=== PATIENT | female | born 1990 | race African-American/Black ===

== ENCOUNTER 2022-09-10 20:28 | Inpatient (IN) ==
[2022-09-10 20:58] LABS: Bacteria,Urine Occasional /HPF (Few); RBC,Urine 4 /HPF (0-4); Squamous Epithelial Cell,Urine Many /HPF (0-10)
[2022-09-10 21:00] LABS: Urine Appearance Slightly Cloudy (Clear); Urine Color Yellow (Yellow); Urine pH 6.5 (4.5-8.0)
[2022-09-10 21:01] LABS: Bilirubin,Urine Negative (Negative); Blood, Urine Trace mg/dL (Negative); Glucose,Urine (UA) Negative (Negative); Ketones,Urine Negative (Negative); Nitrite,Urine Negative (Negative); Protein,Urine Negative (Negative); Urine Urobilinogen 0.2 eU/dL (<2.0)
[2022-09-10 21:05] LABS: Barbiturates Screen,Urine Negative (Negative); Benzodiazepines Screen,Urine Negative (Negative); Cannabinoid Screen,Urine Negative (Negative); Opiate Screen,Urine Negative (Negative); Phencyclidine Screen,Urine Negative (Negative)
[2022-09-10] MEDS ORDERED: SODIUM PHOSPHATE ENEMA 133 ML BOTTLE RECTAL ONE (21:30)
[2022-09-10] MEDS ORDERED: LACTATED RINGERS 1,000 ML IV ONE (21:30)
[2022-09-10] MEDS: LACTATED RINGERS 1,000 ML IV SCH (23:14)
[2022-09-11] MEDS ORDERED: MEPERIDINE 50 MG/1 ML VIAL IV PRN (02:14)
[2022-09-11] MEDS ORDERED: ONDANSETRON 4 MG/2 ML VIAL IV PRN (02:14)
[2022-09-11] MEDS ORDERED: OXYTOCIN/LR 20 UNIT/1,000 ML BAG IV ONE (07:40)
[2022-09-11] MEDS ORDERED: METHYLERGONOVINE 0.2 MG/1 ML AMP IM PRN (07:40)
[2022-09-11] MEDS ORDERED: CARBOPROST TROMETHAMINE 250 MCG/ML AMP IM PRN (07:40)
[2022-09-11] MEDS ORDERED: miSOPROStoL 200 MCG TABLET RECTAL PRN (07:40)
[2022-09-11] MEDS ORDERED: LACTATED RINGERS 500 ML IV PRN (07:40)
[2022-09-11] MEDS ORDERED: TRANEXAMIC ACID 1,000 MG in SODIUM CHLORIDE 0.9% 100 ML IV PRN (07:40)
[2022-09-11] MEDS ORDERED: CITRIC ACID/SODIUM CITRATE 30 ML UDCUP PO ONE (07:50)
[2022-09-11] MEDS ORDERED: FAMOTIDINE 20 MG/2 ML VIAL IV ONE (07:50)
[2022-09-11] MEDS ORDERED: ePHEDrine 50 MG/ML VIAL IV PRN (07:50)
[2022-09-11] MEDS ORDERED: NALOXONE 0.4 MG/ML VIAL IV PRN (07:50)
[2022-09-11] MEDS ORDERED: PROMETHAZINE 25 MG/1 ML VIAL IM PRN (07:50)
[2022-09-11] MEDS ORDERED: diphenhydrAMINE 50 MG/1 ML VIAL IV PRN (07:50)
[2022-09-11] MEDS ORDERED: hydrOXYzine HCL 25 MG/1 ML VIAL IM PRN (07:50)
[2022-09-11] MEDS ORDERED: fentaNYL 2 MCG/ROPIV 0.2% EPID 100 ML EPIDURAL SCH (08:00)
[2022-09-11] MEDS: LACTATED RINGERS 1,000 ML IV SCH (08:01)
[2022-09-11] MEDS: AMPICILLIN INJ 2,000 MG in SODIUM CHLORIDE 0.9% 100 ML IV SCH ×2 (08:01→14:28)
[2022-09-11 08:06] LABS: Basophils % 0.5 % (0.0-0.8); Eosinophils # 0.1 10*3/uL (0.0-0.87); Eosinophils % 0.9 % (0.00-10.9); Hematocrit 32.2 VOL% (35.7-47.0); Hemoglobin 10.5 GM/DL (12.0-16.0); Immature Granulocytes % 0.5 %; Immature Granulocytes Absolute 0.04 #; Lymphocytes # 1.6 10*3/uL (1.4-4.0); Lymphocytes % 18.6 % (21.3-54.2); Mean Corpuscular HGB Conc 32.6 GM/DL (32-36); Mean Corpuscular Volume 102.9 FL (87-102); Mean Platelet Volume 10.9 FL (9.6-12.0); Monocytes # 0.7 10*3/uL (0.11-0.8); Monocytes % 7.9 % (1.7-12.7); Neutrophils % 71.6 % (38.7-73.9); Platelet Count 283 T/CUMM (130-400); Red Blood Count 3.13 MC/CUMM (3.8-5.5); White Blood Count 8.51 T/CUMM (4-12)
[2022-09-11 08:26] LABS: Anisocytosis Slight; Macrocytosis Slight; Platelet Estimate Normal
[2022-09-11 08:45] LABS: Albumin 2.4 G/DL (3.4-5.0); Bilirubin,Total 0.6 MG/DL (0.20-1.00); Calcium 9.3 MG/DL (8.5-10.1); Osmolality,Calculated 276.4 MOS/KG (273-304); Potassium 3.8 MMOL/L (3.5-5.1); Total Protein 6.1 G/DL (6.4-8.2)
[2022-09-11] MEDS: OXYTOCIN/LR 20 UNIT/1,000 ML BAG IV SCH ×2 (08:48→20:40)
[2022-09-11] MEDS ORDERED: TRANEXAMIC ACID 1,000 MG/10 ML VIAL ONE (13:20)
[2022-09-11] MEDS ORDERED: miSOPROStoL 200 MCG TABLET ONE (13:20)
[2022-09-11] MEDS ORDERED: METHYLERGONOVINE 0.2 MG/1 ML AMP ONE (13:21)
[2022-09-11] MEDS ORDERED: CARBOPROST TROMETHAMINE 250 MCG/ML AMP IM ONE (13:21)
[2022-09-11] MEDS ORDERED: SODIUM CHLORIDE 0.9% 0 ML IV ONE (13:21)
[2022-09-11 14:09] LABS: Cord Arterial Blood HCO3 21.8 MMOL/L
[2022-09-11 14:12] LABS: Cord Venous Blood HCO3 23.7 MMOL/L; Cord Venous Blood PCO2 51.9 MMHG; Cord Venous Blood PO2 25.8
[2022-09-11] MEDS ORDERED: RHO(D) IMMUNE GLOBULIN 300 MCG SYRINGE IM ONE (17:30)
[2022-09-11] MEDS ORDERED: LANOLIN 50% CREAM 0.3 OZ TUBE TOP PRN (17:30)
[2022-09-11] MEDS ORDERED: DIPH/TET/ACEL PERT BOOSTER VACCINE 0.5 ML VIAL IM ONE (17:30)
[2022-09-11] MEDS ORDERED: HYDROCORTISONE 2.5% RECTAL CREAM 30 GM TUBE TOP PRN (17:30)
[2022-09-11] MEDS ORDERED: BENZOCAINE 20%/MENTHOL 0.5% SPRAY 56 GM CAN TOP PRN (17:30)
[2022-09-11] MEDS ORDERED: WITCH HAZEL PADS 100/JAR TOP PRN (17:30)
[2022-09-11] MEDS ORDERED: ACETAMINOPHEN 325 MG TABLET PO PRN (17:30)
[2022-09-11] MEDS ORDERED: BISACODYL 10 MG SUPP RECTAL PRN (17:30)
[2022-09-11] MEDS ORDERED: oxyCODONE/ACETAMINOPHEN 5-325 MG TABLET PO PRN (17:30)
[2022-09-11] MEDS ORDERED: MEASLES/MUMPS/RUBELLA VACCINE 0.5 ML VIAL SUBCUT ONE (17:30)
[2022-09-11] MEDS: DOCUSATE SODIUM 100 MG CAPSULE PO SCH (20:39)
[2022-09-12] MEDS: oxyCODONE/ACETAMINOPHEN 5-325 MG TABLET PO PRN ×2 (01:00→20:19)
[2022-09-12 06:18] LABS: Basophils # 0.1 10*3/uL (0.0-0.2); Basophils % 0.5 % (0.0-0.8); Eosinophils # 0.2 10*3/uL (0.0-0.87); Eosinophils % 1.2 % (0.00-10.9); Hematocrit 27.6 VOL% (35.7-47.0); Hemoglobin 9.2 GM/DL (12.0-16.0); Immature Granulocytes % 0.6 %; Immature Granulocytes Absolute 0.09 #; Lymphocytes # 1.9 10*3/uL (1.4-4.0); Lymphocytes % 12.6 % (21.3-54.2); Mean Corpuscular HGB Conc 33.3 GM/DL (32-36); Mean Corpuscular Volume 101.5 FL (87-102); Mean Platelet Volume 11.1 FL (9.6-12.0); Monocytes # 0.8 10*3/uL (0.11-0.8); Monocytes % 5.4 % (1.7-12.7); Neutrophils % 79.7 % (38.7-73.9); Platelet Count 235 T/CUMM (130-400); Red Blood Count 2.72 MC/CUMM (3.8-5.5); Red Cell Distribution Width 11.9 % (9.3-17.3); White Blood Count 15.28 T/CUMM (4-12)
[2022-09-12] MEDS: DOCUSATE SODIUM 100 MG CAPSULE PO SCH ×2 (08:18→20:18)
[2022-09-12] MEDS: IBUPROFEN 800 MG TABLET PO PRN (16:16)
[2022-09-13] MEDS: IBUPROFEN 800 MG TABLET PO PRN (03:06)
[2022-09-13 07:20] VITALS: BP 111/72
[2022-09-13] MEDS: DOCUSATE SODIUM 100 MG CAPSULE PO SCH (08:18)
== END 2022-09-13 13:00 | disposition home or self-care (01) | DRG 807 ==
LOC: N.LDOUT 20:28 → N.LD 20:31 → N.OB 09-11 17:30
PROVIDERS: ADMIT Obstetrics & Gynecology; ATTEND Obstetrics & Gynecology